=== PATIENT | male | born 1975 | race Caucasian/White ===

== ENCOUNTER 2017-02-14 13:39 | Emergency (ER) | payer MEDICAID, SELFPAY ==
[~2017-02-14] VITALS: Ht 185.4 cm; Wt 70.6 kg
[2017-02-14 13:59] VITALS: BP 102/60
[2017-02-14] MEDS ORDERED: IBUP-1114 PO (14:04)
[2017-02-14] MEDS ORDERED: IBUP-1022 PO (15:04)
== END 2017-02-14 15:18 | disposition home or self-care (01) ==
LOC: M ED 14:39
DX: S46.811A Strain of other muscles, fascia and tendons at shoulder and upper arm level, right arm, initial encounter (principal); X58.XXXA Exposure to other specified factors, initial encounter; Y92.89 Other specified places as the place of occurrence of the external cause; Y93.89 Activity, other specified; Y99.8 Other external cause status

== ENCOUNTER → 2017-03-14 | Outpatient (CLI) | payer MEDICAID, SELFPAY ==
[~2017-03-14] MED LIST: IBUP-1022 PO; IBUP-1114 PO; PERC5TAB12 PO; TYLE325C PO; TYLE325T5 PO; ZOFR4TAB3 PO
[2017-03-14 18:23] LABS: ALBUMIN 4.2 GM/DL (3.2-5.2); ALKALINE PHOSPHATASE 55 U/L (45-117); ALT/SGPT 41 U/L (12-78); ANION GAP 5 MEQ/L (8-16); AST/SGOT 21 U/L (15-37); BILIRUBIN,TOTAL 0.9 MG/DL (0.2-1.0); BLOOD UREA NITROGEN 20 MG/DL (7-18); CALCIUM LEVEL 8.8 MG/DL (8.5-10.1); CARBON DIOXIDE LEVEL 30 MEQ/L (21-32); CHLORIDE LEVEL 106 MEQ/L (98-107); CREATININE FOR GFR 0.99 MG/DL (0.70-1.30); GLOMERULAR FILTRATION RATE > 60.0 (>60); GLUCOSE, FASTING 85 MG/DL (70-105); POTASSIUM SERUM 4.5 MEQ/L (3.5-5.1); SODIUM LEVEL 141 MEQ/L (136-145)
[2017-03-14 18:41] LABS: BASO % 0.8 % (0.0-1.0); EOS # 0.2 K/mm3 (0.0-0.50); EOS % 3.6 % (0.0-3.0); LARGE UNSTAINED CELL # 0.1 K/mm3 (0.0-0.4); LARGE UNSTAINED CELL % 2.3 % (0.0-4.0); LYMPH # 1.3 K/mm3 (1.5-4.5); LYMPH % 26.2 % (24.0-44.0); MEAN CORPUSCULAR HEMOGLOBIN 29.2 pg (27.0-33.0); MEAN CORPUSCULAR HGB CONC 33.6 g/dl (32.0-36.5); MONO # 0.3 K/mm3 (0.0-0.8); MONO % 6.5 % (0.0-5.0); NEUTROPHILS # 2.8 K/mm3 (1.8-7.7); NEUTROPHILS % 60.5 % (36.0-66.0); PLATELET COUNT, AUTOMATED 189 k/mm3 (150-450); WHITE BLOOD COUNT 4.6 K/mm3 (4.0-10.0)
== END ==
LOC: M WUC 11:51
PROVIDERS: ATTEND Physician Assistant
DX: R11.0 Nausea (principal)

== ENCOUNTER 2017-05-16 13:53 | Emergency (ER) | payer OTHER, SELFPAY ==
[~2017-05-16] VITALS: Ht 185.4 cm; Wt 68.2 kg
[~2017-05-16 13:53] MED LIST changes: -PERC5TAB12 PO; -TYLE325C PO; -TYLE325T5 PO; -ZOFR4TAB3 PO
[2017-05-16] MEDS ORDERED: ONDANSETRON 4 MG ORAL DISINTEGRATING TAB (S0181) PO ONE (14:15)
[2017-05-16] MEDS ORDERED: MORPHINE 4 MG/ML 1ML SYRINGE IM ONE (14:15)
--- NOTE | 2017-05-16 14:44 | REP ---
LEFT RIB SERIES: Five views including PA chest. HISTORY: Trauma. FINDINGS: PA chest radiograph demonstrates linear plate-like atelectasis or infiltrates in the lung bases bilaterally and in the left perihilar region. No pneumothorax or hydrothorax is seen. Pleural angles are sharp. Multiple views of the left rib cage are presented. These show no visible rib fracture or bony destructive lesion. IMPRESSION: No rib fracture seen. Bilateral lower lobe and left perihilar plate-like atelectasis changes on chest x-ray versus infiltrate. Signed by Rodney Webber MD 05/16/2017 03:04 P
[2017-05-16] MEDS ORDERED: NS 1,000 ML IV ONE (15:30)
[2017-05-16 15:45] LABS: BASO % 0.3 % (0.0-1.0); EOS % 0.3 % (0.0-3.0); LARGE UNSTAINED CELL # 0.1 K/mm3 (0.0-0.4); LARGE UNSTAINED CELL % 0.4 % (0.0-4.0); LYMPH # 0.6 K/mm3 (1.5-4.5); LYMPH % 4.3 % (24.0-44.0); MEAN CORPUSCULAR HEMOGLOBIN 29.5 pg (27.0-33.0); MEAN CORPUSCULAR HGB CONC 34.1 g/dl (32.0-36.5); MEAN CORPUSCULAR VOLUME 86.3 fl (80.0-96.0); MONO # 0.5 K/mm3 (0.0-0.8); MONO % 3.7 % (0.0-5.0); NEUTROPHILS # 11.9 K/mm3 (1.8-7.7); PLATELET COUNT, AUTOMATED 220 k/mm3 (150-450); RED CELL DISTRIBUTION WIDTH 12.8 % (11.5-14.5)
[2017-05-16 15:52] LABS: INR 0.95
[2017-05-16 16:06] LABS: ALBUMIN 4.1 GM/DL (3.2-5.2); ALBUMIN/GLOBULIN RATIO 1.28 (1.00-1.93); ALKALINE PHOSPHATASE 53 U/L (45-117); ALT/SGPT 27 U/L (12-78); ANION GAP 5 MEQ/L (8-16); AST/SGOT 14 U/L (15-37); BILIRUBIN,DIRECT 0.1 MG/DL (0.0-0.2); BILIRUBIN,TOTAL 0.5 MG/DL (0.2-1.0); BLOOD UREA NITROGEN 23 MG/DL (7-18); CALCIUM LEVEL 8.9 MG/DL (8.5-10.1); CARBON DIOXIDE LEVEL 32 MEQ/L (21-32); CHLORIDE LEVEL 103 MEQ/L (98-107); CREATININE FOR GFR 1.12 MG/DL (0.70-1.30); GLOMERULAR FILTRATION RATE > 60.0 (>60); GLUCOSE, FASTING 200 MG/DL (70-105); POTASSIUM SERUM 4.3 MEQ/L (3.5-5.1); SODIUM LEVEL 140 MEQ/L (136-145); TOTAL PROTEIN 7.3 GM/DL (6.4-8.2)
[2017-05-16] MEDS ORDERED: TYLE325T5 PO (16:09)
[2017-05-16] MEDS ORDERED: ISOVUE-370 76% 100ML VIAL (Q9967) As Ordered ONE (16:12)
[2017-05-16] MEDS ORDERED: TYLE325C PO (16:25)
[2017-05-16] MEDS ORDERED: MORPHINE 4 MG/ML 1ML SYRINGE IV ONE ×2 (16:30→18:45)
--- NOTE | 2017-05-16 17:06 | REP ---
Clinical: Trauma. Fall from ladder. Technique: Axial contrast enhanced images from the lung bases to the pubic symphysis using 100 ml Isovue 370 intravenous contrast material with coronal and sagittal re-formations. Findings: Lung bases demonstrate small left anterior pneumothorax along with bibasilar opacities which may reflect atelectasis and/or early contusions. Visualized portions of the heart and mediastinum appear normal. There is no evidence for solid organ injury. Liver, spleen, pancreas, gallbladder, bilateral adrenal glands and kidneys are normal. Splenic calcifications suggest prior granulomas disease. The enteric system is without obstruction or acute inflammatory process. No free air to suggest perforation. No ascites or hemoperitoneum. Pelvis demonstrates collapsed bladder and age appropriate prostate/seminal vesicles. Abdominal aorta and vasculature within the abdomen and pelvis appear normal and without injury. The osseous structures are intact and without evidence for fracture or trauma. Impression: 1. Lung bases demonstrate anterior left pneumothorax and bibasilar opacities which may reflect atelectasis and/or contusions. 2. Evaluation of the abdomen and pelvis is unremarkable and without evidence for acute pathology or trauma/injury. Signed by Alexys Mace MD 05/16/2017 04:58 P
--- NOTE | 2017-05-16 17:17 | REP ---
Clinical: Trauma. Fall from ladder. Technique: Axial contrast enhanced images from the thoracic inlet to the upper abdomen using 100 ml Isovue 370 intravenous contrast material with coronal and sagittal re-formations. Findings: A small left anterior basilar pneumothorax is appreciated along with a 3 cm dense opacity in the apical segment left lower lobe and moderate bibasilar ground-glass opacities which suggest pulmonary contusions and atelectasis. No obvious associated rib fractures identified. Mediastinum demonstrates normal thoracic aorta, pulmonary vasculature and heart/pericardium without further evidence for mediastinal trauma. Small hilar lymph nodes measuring up to 10 mm short axis diameter are nonspecific. Incidental note is made of a 4 mm noncalcified nodule in the anterior subpleural right middle lobe (image 56) and minimal medial right middle lobe scarring. Upper abdomen is unremarkable. Small splenic calcifications consistent with prior granulomas disease. Impression: 1. Small left anterobasilar pneumothorax along with left lower lobe apical segment contusion and bibasilar atelectasis/early contusions. 2. 4 mm noncalcified nodule in the right middle lobe warrants 3-6 months follow-up. 3. No obvious rib fracture or musculoskeletal trauma appreciated. Signed by Alexys Mace MD 05/16/2017 05:08 P
[2017-05-16] MEDS ORDERED: ONDANSETRON 4MG/2ML VIAL (J2405) IV ONE (19:00)
--- NOTE | 2017-05-16 20:33 | REP ---
Clinical: Trauma. Comparison: CT of the abdomen and pelvis. Technique: PA and lateral. Findings: Examination demonstrates a small left apical pneumothorax consistent with the findings on recent CT. No obvious rib fracture. Trace basilar atelectasis is appreciated along with a small opacity which corresponds to the contusion in the apical segment left lower lobe. Mediastinum and cardiac silhouette appear normal. Impression: Small left apical pneumothorax. Small contusion in the apical segment left lower lobe. Trace basilar atelectasis. Signed by Alexys Mace MD 05/16/2017 08:24 P
[2017-05-16] MEDS ORDERED: ZOFR4TAB3 PO (20:39)
[2017-05-16] MEDS ORDERED: PERC5TAB12 PO (20:39)
[2017-05-16] MEDS ORDERED: OXYCODONE/APAP 5MG/325MG(BULK FOR ED) 1 TABLET PO ONE (20:45)
[2017-05-16 21:01] VITALS: BP 106/63
== END 2017-05-16 21:02 | disposition home or self-care (01) ==
LOC: M ED 13:53
DX: S20.212A Contusion of left front wall of thorax, initial encounter (principal); S27.0XXA Traumatic pneumothorax, initial encounter; W11.XXXA Fall on and from ladder, initial encounter; Y92.89 Other specified places as the place of occurrence of the external cause; Y93.89 Activity, other specified; Y99.8 Other external cause status; F17.210 Nicotine dependence, cigarettes, uncomplicated
CPT/HCPCS: 71020; 71101; 71260; 74177; 80048; 80076; 83036; 85025; 85610; 85730; 86850; 86900; 86901; 96372; 96374; 96375; 96376; 99283; J2405; Q9967

== ENCOUNTER → 2017-05-22 | Outpatient (CLI) | payer OTHER ==
[~2017-05-22] MED LIST changes: +PERC5TAB12 PO; +TYLE325C PO; +TYLE325T5 PO; +ZOFR4TAB3 PO
--- NOTE | 2017-05-22 14:40 | REP ---
PA and lateral chest: Comparison is 05/16/2017. There is no pneumothorax. The previous small apical pneumothorax on the left has resolved. There is a nodule in the left mid lung which on the lateral view appear spiculated. I would recommend chest CT for further evaluation. This measures 18 mm in diameter. There are no infiltrates or effusions. Lung garcia otherwise clear. Cardiac size is normal. The walter, mediastinum, and bony thorax are unremarkable. Impression: No pneumothorax. 18 mm spiculated nodule in the left lung. CT followup is recommended. Signed by Hebert Avelar MD 05/22/2017 02:31 P
== END ==
LOC: M SMT 09:40
PROVIDERS: ATTEND Thoracic Surgery (Cardiothoracic Vascular Surgery)
DX: S22.42XD Multiple fractures of ribs, left side, subsequent encounter for fracture with routine healing (principal); W18.30XD Fall on same level, unspecified, subsequent encounter; Y92.009 Unspecified place in unspecified non-institutional (private) residence as the place of occurrence of the external cause

== ENCOUNTER → 2017-06-17 | Outpatient (CLI) | payer OTHER ==
--- NOTE | 2017-06-18 10:10 | REP ---
Clinical: Follow-up pulmonary nodule. Comparison: 05/16/2017. Findings: 3 mm noncalcified nodule in the anterior subpleural right middle lobe (image 61) remains stable. A multilobulated opacity in the apical segment left lower lobe currently measures approximately 2.0 x 1.5 x 1.5 cm and appears decreased when compared to prior examination. Prior examination was performed for trauma and area of opacity in the apical segment left lower lobe was thought to represent pulmonary contusion. Previously identified small left-sided pneumothorax and scattered atelectasis have resolved. No new consolidation, nodule or mass lesion appreciated. Mediastinum is within normal limits. Musculoskeletal structures are intact. Impression: 1. Noncalcified 3-mm nodule in the right middle lobe remains stable. 2. Multilobulated opacity in the apical segment left lower lobe remains prominent but decreased in size when compared to prior examination. Continued follow-up examination in 3-6 months may be warranted. 3. No new acute mediastinal or pleuroparenchymal process appreciated. Signed by Alexys Mace MD 06/18/2017 10:02 A
== END ==
LOC: M RAD 07:42
PROVIDERS: ATTEND Thoracic Surgery (Cardiothoracic Vascular Surgery)
DX: S20.20XD Contusion of thorax, unspecified, subsequent encounter (principal); S27.0XXD Traumatic pneumothorax, subsequent encounter; R91.1 Solitary pulmonary nodule; R91.8 Other nonspecific abnormal finding of lung field; X58.XXXD Exposure to other specified factors, subsequent encounter; Y92.9 Unspecified place or not applicable; Y93.9 Activity, unspecified; Y99.9 Unspecified external cause status

== ENCOUNTER 2022-09-25 22:32 | Emergency (ER) | payer OTHER ==
[~2022-09-25] VITALS: Ht 182.9 cm; Wt 75.6 kg
[~2022-09-25 22:32] MED LIST changes: +ZOFR4TAB14 PO; -ZOFR4TAB3 PO
[2022-09-26 03:37] VITALS: BP 117/63
== END 2022-09-26 06:33 | disposition left against medical advice (07) ==
LOC: M ED 22:32
DX: Z53.21 Procedure and treatment not carried out due to patient leaving prior to being seen by health care provider (principal)

== ENCOUNTER 2023-10-31 08:03 | Inpatient (IN) | payer MEDICAID, OTHER ==
[~2023-10-31] VITALS: Ht 180.3 cm; Wt 65.7 kg
[2023-10-31] MEDS ORDERED: CLON-412 PO (08:10)
[2023-10-31] MEDS ORDERED: LAMO25TA4 PO (08:10)
[2023-10-31] MEDS ORDERED: ZOLP10TA2 PO (08:10)
[2023-10-31 09:06] LABS: HEMATOCRIT 44.6 % (42.0-52.0); HEMOGLOBIN 15.2 g/dl (13.5-17.5); MEAN CORPUSCULAR HEMOGLOBIN 28.6 pg (27.0-33.0); MEAN CORPUSCULAR HGB CONC 34.1 g/dl (32.0-36.5); PLATELET COUNT, AUTOMATED 261 10^3/uL (150-450); RED BLOOD COUNT 5.31 10^6/uL (4.30-6.10); WHITE BLOOD COUNT 4.4 10^3/uL (4.0-10.0)
[2023-10-31 09:09] LABS: AMPHETAMINES LEVEL URINE NEGATIVE (NEGATIVE); BARBITURATES URINE NEGATIVE (NEGATIVE); BENZODIAZEPINES URINE NEGATIVE (NEGATIVE); CANNABINOIDS URINE POSITIVE (NEGATIVE); COCAINE METABOLITE URINE NEGATIVE (NEGATIVE); METHADONE URINE NEGATIVE (NEGATIVE); OPIATES URINE NEGATIVE (NEGATIVE); PHENCYCLIDINE URINE NEGATIVE (NEGATIVE)
[2023-10-31 09:15] LABS: ETHYL ALCOHOL (ETHANOL) < 0.003 % (0.000-0.010)
[2023-10-31 09:16] LABS: SALICYLATE LEVEL < 3.0 MG/DL (<30)
[2023-10-31 09:17] LABS: ALBUMIN 4.2 G/DL (3.2-5.2); ALKALINE PHOSPHATASE 45 U/L (46-116); ALT/SGPT 28 U/L (7.0-40); AST/SGOT 14 U/L (<34); BILIRUBIN,DIRECT 0.5 MG/DL (<0.4); BLOOD UREA NITROGEN 19 MG/DL (9-23); CALCIUM LEVEL 9.1 MG/DL (8.5-10.1); CARBON DIOXIDE LEVEL 27 MMOL/L (20-31); CHLORIDE LEVEL 105 MMOL/L (98-107); CREATININE FOR GFR 0.92 MG/DL (0.70-1.30); GLOMERULAR FILTRATION RATE > 60.0 (>56); GLUCOSE, FASTING 113 MG/DL (60-100); POTASSIUM SERUM 3.9 MMOL/L (3.5-5.1); SODIUM LEVEL 139 MMOL/L (136-145); TOTAL PROTEIN 6.5 G/DL (5.7-8.2)
[2023-10-31 09:19] LABS: THYROID STIMULATING HORMONE 1.141 uIU/ML (0.55-4.78)
[2023-10-31] MEDS: ONDANSETRON 4MG ORAL DISINTEGRATING TAB PO ONE (10:34)
[2023-10-31] MEDS ORDERED: MOM 30ML SUSPENSION UDC PO PRN (12:25)
[2023-10-31] MEDS ORDERED: IBUPROFEN 400MG TAB PO PRN (12:25)
[2023-10-31] MEDS ORDERED: MED REC IN PROGRESS XX SCH (12:55)
[2023-10-31] MEDS ORDERED: HOME MED LIST COMPLETE! XX SCH (13:35)
[2023-10-31 15:06] VITALS: BP 129/74; TEMP 98.1; O2SAT 99
[2023-10-31] MEDS: MAALOX 30 ML SUSP *UDC PO PRN (20:18)
[2023-10-31] MEDS: OLANZapine ORAL DISINTEGRATING TAB 5MG PO SCH (20:45)
[2023-10-31] MEDS: traZODone 50 MG TAB PO PRN (20:45)
[2023-10-31] MEDS: diphenhydrAMINE 25MG CAP PO PRN (22:38)
[2023-11-01] MEDS: OLANZapine ORAL DISINTEGRATING TAB 5MG PO PRN (03:46)
[2023-11-01 06:26] VITALS: BP 119/63; TEMP 97.2; O2SAT 99
[2023-11-01] MEDS: SERTRALINE HCL 50 MG TAB PO SCH (08:31)
[2023-11-01] MEDS: ACETAMINOPHEN TAB 650MG DOSE (2X325MG) PO PRN (10:22)
[2023-11-01 12:54] VITALS: BP 142/80; O2SAT 99
[2023-11-01] MEDS: OLANZapine ORAL DISINTEGRATING TAB 5MG PO ONE (14:42)
[2023-11-01 16:16] VITALS: BP 126/60; TEMP 97.4; O2SAT 99
[2023-11-01] MEDS: traZODone 100 MG TAB PO PRN (21:19)
[2023-11-02 06:45] VITALS: BP 128/74; TEMP 97.3; O2SAT 99
[2023-11-02 16:05] VITALS: BP 129/60; TEMP 98; O2SAT 100
[2023-11-02] MEDS: OLANZapine ORAL DISINTEGRATING TAB 5MG PO PRN (17:16)
[2023-11-02] MEDS: traZODone 50 MG TAB PO PRN (21:18)
[2023-11-03 06:47] VITALS: BP 139/73; TEMP 99.2; O2SAT 96
[2023-11-03 18:46] VITALS: BP 164/90; TEMP 97.3; O2SAT 99
[2023-11-03 20:15] VITALS: BP 142/74; TEMP 98.2; O2SAT 100
[2023-11-03] MEDS: OLANZapine ORAL DISINTEGRATING TAB 5MG PO SCH (20:37)
[2023-11-04 06:22] VITALS: BP 141/85; TEMP 98.2; O2SAT 96
[2023-11-04] MEDS: MIRTAZAPINE 15 MG TAB PO SCH (20:57)
[2023-11-04] MEDS: hydrOXYzine 50 MG TAB PO PRN (22:33)
[2023-11-05 06:24] VITALS: BP 143/91; TEMP 98.2; O2SAT 99
[2023-11-05] MEDS ORDERED: traZODone 100 MG TAB PO PRN (08:25)
[2023-11-05] MEDS: SERTRALINE HCL 25 MG TABLET PO SCH (09:10)
[2023-11-05] MEDS: hydrOXYzine 50 MG TAB PO PRN (13:28)
[2023-11-05] MEDS: OLANZapine ORAL DISINTEGRATING TAB 5MG PO ONE (15:27)
[2023-11-05 17:46] VITALS: BP 155/70; TEMP 97.8; O2SAT 99
[2023-11-05] MEDS: OLANZapine 2.5MG TABLET PO SCH (20:28)
[2023-11-06 06:34] VITALS: BP 157/82; TEMP 98.8; O2SAT 100
[2023-11-06 18:56] VITALS: BP 143/73; TEMP 98.1; O2SAT 98
[2023-11-06] MEDS: traZODone 50 MG TAB PO PRN (20:52)
[2023-11-07 06:11] VITALS: BP 140/77; TEMP 98; O2SAT 98
[2023-11-07] MEDS ORDERED: OLAN2.5T25 PO (09:19)
[2023-11-07] MEDS ORDERED: MIRT-10 PO (09:19)
[2023-11-07] MEDS ORDERED: SERT25TA21 PO (09:19)
[2023-11-07] MEDS ORDERED: HYDR50TA70 PO (09:19)
[2023-11-07] MEDS ORDERED: TRAZ-252 PO (09:19)
== END 2023-11-07 10:20 | disposition home or self-care (01) | DRG 753 ==
LOC: M ED 08:03 → M ED INP 12:24 → M PSY 13:50
PROVIDERS: ADMIT Student in an Organized Health Care Education/Training Program; ATTEND Student in an Organized Health Care Education/Training Program
DX: F32.89 Other specified depressive episodes (principal); R45.851 Suicidal ideations; Z56.0 Unemployment, unspecified; Z79.899 Other long term (current) drug therapy

== ENCOUNTER 2023-11-27 20:15 | Emergency (ER) | payer MEDICAID, OTHER ==
[~2023-11-27] VITALS: Ht 182.9 cm; Wt 72.7 kg
[~2023-11-27 20:15] MED LIST changes: +CLON-412 PO; +HYDR50TA70 PO; +LAMO25TA4 PO; +MIRT-10 PO; +OLAN2.5T25 PO; +SERT25TA21 PO; +TRAZ-252 PO; +ZOLP10TA2 PO
[2023-11-27 20:16] VITALS: BP 131/77; TEMP 97.7; O2SAT 97
== END 2023-11-27 21:00 | disposition left against medical advice (07) ==
LOC: M ED 20:15
DX: Z53.21 Procedure and treatment not carried out due to patient leaving prior to being seen by health care provider (principal)

== ENCOUNTER → 2024-03-16 | Outpatient (REF) | LOC: M PLAIMG 10:05 | PROVIDERS: ATTEND Internal Medicine | DX: R52 Pain, unspecified (principal) ==

== ENCOUNTER 2024-11-09 19:36 | Inpatient (IN) | payer MEDICAID, OTHER ==
[~2024-11-09] VITALS: Ht 182.9 cm; Wt 79.3 kg
[~2024-11-09 19:36] MED LIST changes: -OLAN2.5T25 PO; +OLAN2.5T53 PO
[2024-11-09] MEDS ORDERED: CLONI1TA PO (20:18)
[2024-11-09 21:01] LABS: HEMATOCRIT 45.4 % (42.0-52.0); HEMOGLOBIN 15.3 g/dl (13.5-17.5); MEAN CORPUSCULAR HEMOGLOBIN 28.7 pg (27.0-33.0); MEAN CORPUSCULAR HGB CONC 33.7 g/dl (32.0-36.5); PLATELET COUNT, AUTOMATED 274 10^3/uL (150-450); RED BLOOD COUNT 5.34 10^6/uL (4.30-6.10); WHITE BLOOD COUNT 7.3 10^3/uL (4.0-10.0)
[2024-11-09 21:28] LABS: ETHYL ALCOHOL (ETHANOL) 0.003 % (0.000-0.010)
[2024-11-09 21:29] LABS: SALICYLATE LEVEL < 3.0 MG/DL (<30)
[2024-11-09 21:30] LABS: ALBUMIN 4.4 G/DL (3.2-5.2); ALKALINE PHOSPHATASE 48 U/L (40-129); ALT/SGPT 19 U/L (7.0-40); AST/SGOT 11 U/L (<34); BILIRUBIN,DIRECT 0.3 MG/DL (<0.4); BILIRUBIN,TOTAL 0.9 MG/DL (0.3-1.2); BLOOD UREA NITROGEN 13 MG/DL (9-23); CALCIUM LEVEL 9.3 MG/DL (8.5-10.1); CARBON DIOXIDE LEVEL 26 MMOL/L (20-31); CHLORIDE LEVEL 107 MMOL/L (98-107); GLOMERULAR FILTRATION RATE > 60.0 (>56); GLUCOSE, FASTING 116 MG/DL (60-100); POTASSIUM SERUM 4.3 MMOL/L (3.5-5.1); SODIUM LEVEL 143 MMOL/L (136-145); TOTAL PROTEIN 7.1 G/DL (5.7-8.2)
[2024-11-09 21:31] LABS: THYROID STIMULATING HORMONE 1.694 uIU/ML (0.55-4.78)
[2024-11-09 22:03] LABS: AMPHETAMINES LEVEL URINE NEGATIVE (NEGATIVE); BARBITURATES URINE NEGATIVE (NEGATIVE); COCAINE METABOLITE URINE NEGATIVE (NEGATIVE); METHADONE URINE NEGATIVE (NEGATIVE); OPIATES URINE NEGATIVE (NEGATIVE); PHENCYCLIDINE URINE NEGATIVE (NEGATIVE)
[2024-11-09 22:05] LABS: BENZODIAZEPINES URINE POSITIVE (NEGATIVE); CANNABINOIDS URINE POSITIVE (NEGATIVE)
[2024-11-10] MEDS ORDERED: MAALOX 30 ML SUSP *UDC PO PRN (00:15)
[2024-11-10] MEDS ORDERED: ACETAMINOPHEN 325 MG TAB PO PRN (00:15)
[2024-11-10] MEDS ORDERED: SERT25TA21 PO (00:43)
[2024-11-10] MEDS ORDERED: TRAZ-252 PO (00:43)
[2024-11-10] MEDS ORDERED: MIRT-88 PO (00:43)
[2024-11-10] MEDS ORDERED: HOME MED LIST COMPLETE! XX SCH (00:45)
[2024-11-10] MEDS: LORazepam 1 MG TAB PO PRN (01:46)
[2024-11-10 01:50] VITALS: BP 150/76; TEMP 98; O2SAT 98
[2024-11-10 06:28] VITALS: BP 140/72; TEMP 98.1; O2SAT 99
[2024-11-10] MEDS: IBUPROFEN 400MG TAB PO PRN (08:14)
[2024-11-10 09:10] VITALS: BP 135/86
[2024-11-10] MEDS: cloNIDine 0.1MG TABLET PO PRN (09:10)
[2024-11-10] MEDS: ESCITALOPRAM OXALATE 10 MG TAB (LEXAPRO) PO SCH (09:10)
[2024-11-10] MEDS: MOM 30ML SUSPENSION UDC PO PRN (09:12)
[2024-11-10 15:26] VITALS: BP 144/80; TEMP 97; O2SAT 96
[2024-11-10] MEDS: MIRTAZAPINE 15 MG TAB PO SCH (20:24)
[2024-11-10] MEDS: OLANZapine ORAL DISINTEGRATING TAB 5MG PO PRN (20:24)
[2024-11-10] MEDS: diphenhydrAMINE 25MG CAP PO PRN (21:59)
[2024-11-10] MEDS: traZODone 50 MG TAB PO PRN (22:02)
[2024-11-11 06:33] VITALS: BP 150/71; TEMP 97.3; O2SAT 99
[2024-11-11 15:29] VITALS: BP 141/75; TEMP 97.2; O2SAT 97
[2024-11-12 06:51] VITALS: BP 139/79; TEMP 97.9; O2SAT 99
[2024-11-12] MEDS ORDERED: LEXA1TAB PO (08:31)
[2024-11-12] MEDS ORDERED: OLAN5ZYD PO (08:31)
== END 2024-11-12 10:58 | disposition home or self-care (01) | DRG 754 ==
LOC: M ED 19:36 → M ED INP 11-10 00:12 → M PSY 11-10 01:42
PROVIDERS: ADMIT Psychiatry & Neurology Neurology; ATTEND Psychiatry & Neurology Neurology
DX: F32.9 Major depressive disorder, single episode, unspecified (principal); F41.1 Generalized anxiety disorder; Z79.899 Other long term (current) drug therapy